=== PATIENT | female | born 1990 | race Caucasian/White ===

== ENCOUNTER 2017-01-21 08:20 | Emergency (ER) | payer OTHER ==
--- NOTE | 2017-01-21 09:28 | DIAGNOSTIC IMAGING REPORT ---
PROCEDURE: XR CHEST 1 VIEW INDICATION: R SIDE PX TECHNIQUE: Portable AP view 09:15 a.m. COMPARISON: None. FINDINGS: Lungs are clear. Heart and mediastinum are normal. Thorax is normal. IMPRESSION: 1. Negative chest.
--- NOTE | 2017-01-21 10:05 | ED ORDER SUMMARY ---
..... Patient: NAYANA CASTELLANOS OrderSheet [facility] VisitID: [id number] [address] [place] [address] 26y, F Registration Date/Time: 01/21/2017 ORDER SHEET Weight: 117.4 kg (stated) Allergies: Desmopressin GENERAL ORDERS: Chest 2V Urgent (08:58 01/21/2017 Seng EDOUARD) (Ack 9:05 Raphael) (9:14 Raphael) MEDICATION ORDERS: Depo-Medrol IM 80 mg (NOW) (10:05 01/21/2017 Francheska Espinal) (10:19 Mario Alberto Michaud.NEligio) IV FLUIDS: ORDER SHEET NOTES: [Electronically signed by Christiana Osuna R.N. (10:01/21/2017)] [Electronically signed by Gomez Michael Dr. (21:41 01/21/2017)] [Electronically locked/signed by Christiana Osuna R.N. (10:01/21/2017)]
--- NOTE | 2017-01-21 10:05 | ED CLINICAL REPORT ---
Clinical Report - Physicians/Mid Levels [facility] [address] [place] [address] 01/21/2017 8:23 Patient: NAYANA CASTELLANOS Time Seen: 08:49. Arrived- By private vehicle. Historian- patient. HISTORY OF PRESENT ILLNESS Chief Complaint: COUGH. This started about 3 weeks ago and is still present. It was gradual in onset and has been constant. The patient has had a cough, a subjective fever and chills. She has had moderate amounts of thick, white sputum. She has had chest soreness (R sided with deep breaths). Additional history - The patient has had contact with a sick child. Recent medical care: The patient was seen recently at another facility. Seen for similar symptoms. Evaluation/treatment: antibiotic prescribed. ( She reports that in spite of a course of Zithromax her symptoms did not improve.). REVIEW OF SYSTEMS No nausea, vomiting, pedal edema or calf pain. All systems otherwise negative, except as recorded above. PAST HISTORY Asthma. Hypertension. Bronchitis. SURGERIES: Appendectomy. Cholecystectomy. CSection. Tubal Ligation. SOCIAL HISTORY Current every day light tobacco smoker (cigarette)- less than 1/2 a pack per day. Occasional alcohol use. ADDITIONAL NOTES The nursing notes have been reviewed. PHYSICAL EXAM Vital Signs: 01/21/2017 08:35 BP: 132/77. HR: 73. RR: 18. O2 saturation: 99%. Temp: 98.7 F. Pain level now: 3/10. Have been reviewed. Appearance: Alert. No acute distress. Eyes: Pupils equal, round and reactive to light. ENT: Pharynx normal. Neck: Normal inspection. Neck supple. CVS: Normal heart rate and rhythm. Heart sounds normal. Respiratory: No respiratory distress. (rattle over large airways that cleared with cough). Abdomen: Soft and nontender. No organomegaly. Back: Normal inspection. Skin: Skin warm. Normal skin color. No rash. Normal skin turgor. Extremities: Extremities exhibit normal ROM. No calf tenderness. No lower extremity edema. Neuro: Oriented X 3. LABS, X-RAYS, AND EKG Chest X-ray: No acute disease. Normal lung markings present. Normal heart size. Mediastinum normal. Great vessels normal. Soft tissues normal. No infiltrate. No fracture. No bony lesion present. Views: PA and lateral. Technique: good. The X-rays were independently viewed by me and interpreted contemporaneously by me. Prior films were not available for comparison. Interpretation time: 10:02. PROGRESS AND PROCEDURES Course of Care: 09:16 01/21/17. The case was discussed with Dr. Alec harvey. We reviewed the patient's history and examination findings. He will follow up on the results are pending studies and will arrange an appropriate disposition for her. - MW 10:03 01/21/17. Confirmed H&P findings taken from Dr. Null from my own exam. Findings C/W post-viral cough. Disposition: Discharged home in good and improved condition. Condition: good. CLINICAL IMPRESSION Acute cough (Post-viral). INSTRUCTIONS Do not smoke. Seek medical help to quit smoking. Your Current Medications: CONTINUE TAKING THE FOLLOWING MEDICATIONS: CeleXA Oral : Tablet 20 mg, 1 tablet daily. Lisinopril Oral : Tablet 20 mg, 1 tablet daily. Prescription Medications: Benzonatate 100 mg: take 1 orally every 8 hours as needed for cough. Dispense twenty (20). No refill. Follow-up: Blood pressure screening was not performed during this visit because the patient has an active diagnosis of hypertension. Follow-up with: [facility], , , [address], , [place], [address] Follow up in two days. Call for an appointment. (Electronically signed by Gomez Michael Dr. 01/21/2017 21:41)
--- NOTE | 2017-01-21 10:05 | ED ORDER SUMMARY ---
..... Patient: NAYANA CASTELLANOS OrderSheet [facility] VisitID: [id number] [address] [place] [address] 26y, F Registration Date/Time: 01/21/2017 ORDER SHEET Weight: 117.4 kg (stated) Allergies: Desmopressin GENERAL ORDERS: Chest 2V Urgent (08:58 01/21/2017 Seng EDOUARD) (Ack 9:05 Raphael) (9:14 Raphael) MEDICATION ORDERS: Depo-Medrol IM 80 mg (NOW) (10:05 01/21/2017 Francheska Espinal) (10:19 Mario Alberto Michaud.NEligio) IV FLUIDS: ORDER SHEET NOTES: [Electronically signed by Christiana Osuna R.N. (10:01/21/2017)] [Electronically signed by Gomez Michael Dr. (21:41 01/21/2017)] [Electronically locked/signed by Christiana Osuna R.N. (10:01/21/2017)]
--- NOTE | 2017-01-21 10:05 | ED NURSING NOTES ---
Clinical Report - Nurses [facility] [address] [place] [address] 01/21/2017 8:23 Patient: NAYANA CASTELLANOS TRIAGE Triage time 08:35 Jan 21 2017. Acuity: LEVEL 3. Chief Complaint: (Right rib pain radiating to back). SEPSIS SCREEN: Sepsis Screen. Negative (no infection suspected/documented). TYRONE COMA SCORE: [place] Coma Scale: 15- eyes open spontaneously (4); best verbal response- oriented x 4 (5); best motor response- obeys commands (6). --08:43 Christiana Osuna R.N. 08:35 01/21/17. BP: 132/77 (large adult cuff) taken on the left arm, while sitting. HR: 73. RR: 18. O2 saturation: 99% on room air. Temp: 98.7 F (oral). Pain level now: 3/10. Additional comments: right rib. --08:43 Christiana Osuna R.N. Weight: 117.4 kg stated. Height/Length: 62 inches Per Patient. BMI: 47.4. --08:39 Christiana Osuna R.N. Medications Lisinopril Oral (Tablet 20 mg) 1 tablet, daily. --08:37 Christiana Osuna R.N. CeleXA Oral (Tablet 20 mg) 1 tablet, daily. --08:38 Christiana Osuna R.N. Allergies Desmopressin. --08:38 Christiana Osuna R.N. History Arrived by private vehicle. Historian: patient. Onset. (2 days ago). ( cough for 3 weeks, zpac given for 5 days one week ago, hasn't noticed any improvement). 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 PAST MEDICAL HX: Last normal menstrual period now. SOCIAL HX: Current every day light tobacco smoker- less than 1/2 a pack per day. Occasional alcohol use; consumes liquor. No drug use. No recent travel. She has had contact with a sick child. No infectious disease exposure. ABUSE ASSESSMENT: No report of abuse. --08:43 Christiana Osuna R.N. PROBLEMS: Asthma. Hypertension. Bronchitis. --08:40 Christiana Osuna R.N. ADDITIONAL SURGERIES: Appendectomy. Cholecystectomy. CSection. Tubal Ligation. --08:40 Christiana Osuna R.N. Interventions ID band on patient. To treatment room. --08:43 Christiana Osuna R.N. PHYSICAL ASSESSMENT Ambulatory to room. GENERAL / NEURO / PSYCH: Alert. Oriented X 4. HEENT: Mucous membranes are pink. RESPIRATORY: Respirations not labored. Breath sounds within normal limits. CVS: Normal sinus rhythm noted. Capillary refill less than 2 seconds. GI / : The patient has diarrhea (last three days). It has been watery and contained mucous. Abdomen soft. Abdominal tenderness in the right upper quadrant and left upper quadrant. SKIN: Skin is warm. --08:45 Christiana Osuna R.N. NURSING PROGRESS NOTES The plan of care for this patient has been created. Monitoring of patient in place. Patient gowned. Head of bed elevated. Reassurance given. Two patient identifiers checked. Call light placed in reach. Side rails up x 1. Bed placed in lowest position. Brakes of bed on. Patient ready for evaluation- chart flagged and ED physician notified. --08:45 Christiana Osuna R.N. Patient returned from radiology with tech. (09:20 Jan 21 2017). --09:20 Christiana Osuna R.N. <<STRICKEN ENTRY-- Care transferred and report given (Olinda PARDO). --10:00 Christiana Osuna R.N. --END STRIKE>> Charted On Wrong Patient --10:26 Christiana Osuna R.N. 10:19 01/21/2017 Depo-Medrol IM 80 mg given. Given in the left gluteus sharron. Allergies verified and confirmed 5 rights. --10:19 Christiana Osuna R.N. 10:00 01/21/17. BP: 120/80 (large adult cuff) taken on the left arm, while sitting. HR: 70. RR: 18. O2 saturation: 98% on room air. Pain level now: 4/10. --10:25 Christiana Osuna R.N. DISPOSITION / DISCHARGE Condition at departure: unchanged. No learning barriers present. Discharge instructions provided and reviewed with the patient. Reviewed medication(s) side effects, precautions and dosing information. Prescription(s) given to the patient. Reviewed need to stop smoking- provided smoking cessation materials and counseling. Patient verbalized understanding. Written instructions provided in Portuguese. The patient was discharged by the physician. She was discharged home. She left the Emergency Department ambulatory and via private vehicle. Patient driving. --10:19 Christiana Osuna R.N. 10:13 01/21/17. BP: 120/80 (regular adult cuff) taken on the left arm, while sitting. HR: 75. RR: 18. O2 saturation: 97% on room air. Temp: 98.4 F (oral). Pain level now: 01/18. --10:19 Christiana Osuna R.N. Departure time: 10:23 Jan 21 2017. --10:23 Christiana Osuna R.N. Locked/Released at 01/21/2017 10:26 by Christiana Osuna R.N.
--- NOTE | 2017-01-21 10:05 | ED NURSING NOTES ---
Clinical Report - Nurses [facility] [address] [place] [address] 01/21/2017 8:23 Patient: NAYANA CASTELLANOS TRIAGE Triage time 08:35 Jan 21 2017. Acuity: LEVEL 3. Chief Complaint: (Right rib pain radiating to back). SEPSIS SCREEN: Sepsis Screen. Negative (no infection suspected/documented). TYRONE COMA SCORE: [place] Coma Scale: 15- eyes open spontaneously (4); best verbal response- oriented x 4 (5); best motor response- obeys commands (6). --08:43 Christiana Osuna R.N. 08:35 01/21/17. BP: 132/77 (large adult cuff) taken on the left arm, while sitting. HR: 73. RR: 18. O2 saturation: 99% on room air. Temp: 98.7 F (oral). Pain level now: 3/10. Additional comments: right rib. --08:43 Christiana Osuna R.N. Weight: 117.4 kg stated. Height/Length: 62 inches Per Patient. BMI: 47.4. --08:39 Christiana Osuna R.N. Medications Lisinopril Oral (Tablet 20 mg) 1 tablet, daily. --08:37 Christiana Osuna R.N. CeleXA Oral (Tablet 20 mg) 1 tablet, daily. --08:38 Christiana Osuna R.N. Allergies Desmopressin. --08:38 Christiana Osuna R.N. History Arrived by private vehicle. Historian: patient. Onset. (2 days ago). ( cough for 3 weeks, zpac given for 5 days one week ago, hasn't noticed any improvement). 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 PAST MEDICAL HX: Last normal menstrual period now. SOCIAL HX: Current every day light tobacco smoker- less than 1/2 a pack per day. Occasional alcohol use; consumes liquor. No drug use. No recent travel. She has had contact with a sick child. No infectious disease exposure. ABUSE ASSESSMENT: No report of abuse. --08:43 Christiana Osuna R.N. PROBLEMS: Asthma. Hypertension. Bronchitis. --08:40 Christiana Osuna R.N. ADDITIONAL SURGERIES: Appendectomy. Cholecystectomy. CSection. Tubal Ligation. --08:40 Christiana Osuna R.N. Interventions ID band on patient. To treatment room. --08:43 Christiana Osuna R.N. PHYSICAL ASSESSMENT Ambulatory to room. GENERAL / NEURO / PSYCH: Alert. Oriented X 4. HEENT: Mucous membranes are pink. RESPIRATORY: Respirations not labored. Breath sounds within normal limits. CVS: Normal sinus rhythm noted. Capillary refill less than 2 seconds. GI / : The patient has diarrhea (last three days). It has been watery and contained mucous. Abdomen soft. Abdominal tenderness in the right upper quadrant and left upper quadrant. SKIN: Skin is warm. --08:45 Christiana Osuna R.N. NURSING PROGRESS NOTES The plan of care for this patient has been created. Monitoring of patient in place. Patient gowned. Head of bed elevated. Reassurance given. Two patient identifiers checked. Call light placed in reach. Side rails up x 1. Bed placed in lowest position. Brakes of bed on. Patient ready for evaluation- chart flagged and ED physician notified. --08:45 Christiana Osuna R.N. Patient returned from radiology with tech. (09:20 Jan 21 2017). --09:20 Christiana Osuna R.N. <<STRICKEN ENTRY-- Care transferred and report given (Olinda PARDO). --10:00 Christiana Osuna R.N. --END STRIKE>> Charted On Wrong Patient --10:26 Christiana Osuna R.N. 10:19 01/21/2017 Depo-Medrol IM 80 mg given. Given in the left gluteus sharron. Allergies verified and confirmed 5 rights. --10:19 Christiana Osuna R.N. 10:00 01/21/17. BP: 120/80 (large adult cuff) taken on the left arm, while sitting. HR: 70. RR: 18. O2 saturation: 98% on room air. Pain level now: 4/10. --10:25 Christiana Osuna R.N. DISPOSITION / DISCHARGE Condition at departure: unchanged. No learning barriers present. Discharge instructions provided and reviewed with the patient. Reviewed medication(s) side effects, precautions and dosing information. Prescription(s) given to the patient. Reviewed need to stop smoking- provided smoking cessation materials and counseling. Patient verbalized understanding. Written instructions provided in Frisian. The patient was discharged by the physician. She was discharged home. She left the Emergency Department ambulatory and via private vehicle. Patient driving. --10:19 Christiana Osuna R.N. 10:13 01/21/17. BP: 120/80 (regular adult cuff) taken on the left arm, while sitting. HR: 75. RR: 18. O2 saturation: 97% on room air. Temp: 98.4 F (oral). Pain level now: 01/18. --10:19 Christiana Osuna R.N. Departure time: 10:23 Jan 21 2017. --10:23 Christiana Osuna R.N. Locked/Released at 01/21/2017 10:26 by Christiana Osuna R.N.
--- NOTE | 2017-01-21 10:05 | ED CLINICAL REPORT ---
Clinical Report - Physicians/Mid Levels [facility] [address] [place] [address] 01/21/2017 8:23 Patient: NAYANA CASTELLANOS Time Seen: 08:49. Arrived- By private vehicle. Historian- patient. HISTORY OF PRESENT ILLNESS Chief Complaint: COUGH. This started about 3 weeks ago and is still present. It was gradual in onset and has been constant. The patient has had a cough, a subjective fever and chills. She has had moderate amounts of thick, white sputum. She has had chest soreness (R sided with deep breaths). Additional history - The patient has had contact with a sick child. Recent medical care: The patient was seen recently at another facility. Seen for similar symptoms. Evaluation/treatment: antibiotic prescribed. ( She reports that in spite of a course of Zithromax her symptoms did not improve.). REVIEW OF SYSTEMS No nausea, vomiting, pedal edema or calf pain. All systems otherwise negative, except as recorded above. PAST HISTORY Asthma. Hypertension. Bronchitis. SURGERIES: Appendectomy. Cholecystectomy. CSection. Tubal Ligation. SOCIAL HISTORY Current every day light tobacco smoker (cigarette)- less than 1/2 a pack per day. Occasional alcohol use. ADDITIONAL NOTES The nursing notes have been reviewed. PHYSICAL EXAM Vital Signs: 01/21/2017 08:35 BP: 132/77. HR: 73. RR: 18. O2 saturation: 99%. Temp: 98.7 F. Pain level now: 3/10. Have been reviewed. Appearance: Alert. No acute distress. Eyes: Pupils equal, round and reactive to light. ENT: Pharynx normal. Neck: Normal inspection. Neck supple. CVS: Normal heart rate and rhythm. Heart sounds normal. Respiratory: No respiratory distress. (rattle over large airways that cleared with cough). Abdomen: Soft and nontender. No organomegaly. Back: Normal inspection. Skin: Skin warm. Normal skin color. No rash. Normal skin turgor. Extremities: Extremities exhibit normal ROM. No calf tenderness. No lower extremity edema. Neuro: Oriented X 3. LABS, X-RAYS, AND EKG Chest X-ray: No acute disease. Normal lung markings present. Normal heart size. Mediastinum normal. Great vessels normal. Soft tissues normal. No infiltrate. No fracture. No bony lesion present. Views: PA and lateral. Technique: good. The X-rays were independently viewed by me and interpreted contemporaneously by me. Prior films were not available for comparison. Interpretation time: 10:02. PROGRESS AND PROCEDURES Course of Care: 09:16 01/21/17. The case was discussed with Dr. Alec harvey. We reviewed the patient's history and examination findings. He will follow up on the results are pending studies and will arrange an appropriate disposition for her. - MW 10:03 01/21/17. Confirmed H&P findings taken from Dr. Null from my own exam. Findings C/W post-viral cough. Disposition: Discharged home in good and improved condition. Condition: good. CLINICAL IMPRESSION Acute cough (Post-viral). INSTRUCTIONS Do not smoke. Seek medical help to quit smoking. Your Current Medications: CONTINUE TAKING THE FOLLOWING MEDICATIONS: CeleXA Oral : Tablet 20 mg, 1 tablet daily. Lisinopril Oral : Tablet 20 mg, 1 tablet daily. Prescription Medications: Benzonatate 100 mg: take 1 orally every 8 hours as needed for cough. Dispense twenty (20). No refill. Follow-up: Blood pressure screening was not performed during this visit because the patient has an active diagnosis of hypertension. Follow-up with: [facility], , , [address], , [place], [address] Follow up in two days. Call for an appointment. (Electronically signed by Gomez Michael Dr. 01/21/2017 21:41)
--- NOTE | 2017-01-21 10:49 | DIAGNOSTIC IMAGING REPORT ---
PROCEDURE: XR CHEST 1 VIEW INDICATION: PAIN TECHNIQUE: Lateral view 09:42 a.m. COMPARISON: PA view 01/21/2017 at 09:15 a.m. FINDINGS: Lungs are clear. Heart and mediastinum are normal. Thorax is normal. IMPRESSION: 1. Negative chest.
--- NOTE | 2017-01-21 21:41 | ED DISCHARGE INSTRUCTIONS ---
Patient: NAYANA CASTELLANOS General Instructions [facility] VisitID: [id number] [address] [place] [address] 26y, F Registration Date/Time: 01/21/2017 Acute cough (Post-viral). INSTRUCTIONS Do not smoke. Seek medical help to quit smoking. Your Current Medications: CONTINUE TAKING THE FOLLOWING MEDICATIONS: CeleXA Oral : Tablet 20 mg, 1 tablet daily. Lisinopril Oral : Tablet 20 mg, 1 tablet daily. Prescription Medications: Benzonatate 100 mg: take 1 orally every 8 hours as needed for cough. Dispense twenty (20). No refill. Follow-up: Blood pressure screening was not performed during this visit because the patient has an active diagnosis of hypertension. Follow-up with: [facility], , , [address], , [place], [id number] Follow up in two days. Call for an appointment. ADDITIONAL INFORMATION Viral Respiratory Illness [Adult] You have an Upper Respiratory Illness (URI) caused by a virus. This illness is contagious during the first few days. It is spread through the air by coughing and sneezing or by direct contact (touching the sick person and then touching your own eyes, nose or mouth). Most viral illnesses go away within 7-10 days with rest and simple home remedies. Sometimes, the illness may last for several weeks. Antibiotics will not kill a virus and are generally not prescribed for this condition. Home Care: 1) If symptoms are severe, rest at home for the first 2-3 days. When you resume activity, don't let yourself get too tired. 2) Avoid being exposed to cigarette smoke (yours or others). 3) Tylenol (acetaminophen) or ibuprofen (Advil, Motrin) will help fever, muscle aching and headache. (Persons under 18 with fever should not take aspirin since this may cause liver damage.) 4) Your appetite may be poor, so a light diet is fine. Avoid dehydration by drinking 6-8 glasses of fluids per day (water, soft drinks, juices, tea, soup). Extra fluids will help loosen secretions in the nose and lungs. 5) Vtwl-mzm-fpztczd cold medicines will not shorten the length of time youre sick, but they may be helpful for the following symptoms: cough (Robitussin DM); sore throat (Chloraseptic lozenges or spray); nasal and sinus congestion (Actifed, Sudafed, Chlortrimeton). Follow Up with your doctor or as advised if you dont improve over the next week. Get Prompt Medical Attention if any of the following occur: -- Cough with lots of colored sputum (mucus) or blood in your sputum -- Chest pain, shortness of breath, wheezing or have trouble breathing -- Severe headache; face, neck or ear pain -- Fever over 100.4 F (38.0 C) for more than three days -- You cant swallow due to throat pain How To Quit Smoking Smoking is one of the hardest habits to break. About half of all those who have ever smoked have been able to quit, and most of those (about 70%) who still smoke want to quit. Here are some of the best ways to stop smoking. Keep Trying: It takes most smokers about 8 tries before they are finally able to fully quit. So, the more often you try and fail, the better your chance of quitting the next time! So, don't give up! Go Cold [place]: Most ex-smokers quit cold turkey. Trying to cut back gradually doesn't seem to work as well, perhaps because it continues the smoking habit. Also, it is possible to fool yourself by inhaling more while smoking fewer cigarettes. This results in the same amount of nicotine in your body! Get Support: Support programs can make an important difference, especially for the heavy smoker. These groups offer lectures, methods to change your behavior and peer support. Call the free national Quitline for more information. 341-RUDL-LIJ (712-789-4772). Low-cost or free programs are offered by many hospitals, local chapters of the [place] [employer] (360-029-5330) and the [place] [employer] (555-763-4792). Support at home is important too. Non-smokers can help by offering praise and encouragement. If the smoker fails to quit, encourage them to try again! Eeey-Byl-Efevlgr Medicines: For those who can't quit on their own, Nicotine Replacement Therapy (NRT) may make quitting much easier. Certain aids such as the nicotine patch, gum and lozenge are available without a prescription. However, it is best to use these under the guidance of your doctor. The skin patch provides a steady supply of nicotine to the body. Nicotine gum and lozenge gives temporary bursts of low levels of nicotine. Both methods take the edge off the craving for cigarettes. WARNING: If you feel symptoms of nicotine overdose, such as nausea, vomiting, dizziness, weakness, or fast heartbeat, stop using these and see your doctor. Prescription Medicines: After evaluating your smoking patterns and prior attempts at quitting, your doctor may offer a prescription medicine such as bupropion (Zyban, Wellbutrin), varenicline (Chantix, Champix), a niocotine inhaler or nasal spray. Each has its unique advantage and side effects which your doctor can review with you. Health Benefits Of Quitting: The benefits of quitting start right away and keep improving the longer you go without smokin minutes: blood pressure and pulse return to normal 8 hours: oxygen levels return to normal 2 days: ability to smell and taste begins to improve as damaged nerves start to regrow 2-3 weeks: circulation and lung function improves 1-9 months: decreased cough, congestion and shortness of breath; less tired 1 year: risk of heart attack decreases by half 5 years: risk of lung cancer decreases by half; risk of stroke becomes the same as a non-smoker For information about how to quit smoking, visit the following links: National Cancer [place] , Clearing the Air, Quit Smoking Today - an online booklet. http://www.smokefree.gov/pubs/clearing_the_air.pdf Smokefree.gov http://smokefree.gov/ QuitNet http://www.quitnet.com/ Benzonatate Oral capsule, liquid filled What is this medicine? BENZONATATE (steph ROSETTA na caban) is used to treat cough. How should I use this medicine? Take this medicine by mouth with a glass of water. Follow the directions on the prescription label. Avoid breaking, chewing, or sucking the capsule, as this can cause serious side effects. Take your medicine at regular intervals. Do not take your medicine more often than directed. Talk to your instructor tap dancing regarding the use of this medicine in children. While this drug may be prescribed for children as young as 10 years old for selected conditions, precautions do apply. What side effects may I notice from receiving this medicine? Side effects that you should report to your doctor or health child day care provider as soon as possible: allergic reactions like skin rash, itching or hives, swelling of the face, lips, or tongue breathing problems chest pain confusion or hallucinations irregular heartbeat numbness of mouth or throat seizures Side effects that usually do not require medical attention (report to your doctor or health child day care provider if they continue or are bothersome): burning feeling in the eyes constipation headache nasal congestion stomach upset What may interact with this medicine? Do not take this medicine with any of the following medications: MAOIs like Carbex, Eldepryl, Marplan, Nardil, and Parnate What if I miss a dose? If you miss a dose, take it as soon as you can. If it is almost time for your next dose, take only that dose. Do not take double or extra doses. Where should I keep my medicine? Keep out of the reach of children. Store at room temperature between 15 and 30 degrees C (59 and 86 degrees F). Keep tightly closed. Protect from light and moisture. Throw away any unused medicine after the expiration date. What should I tell my health care provider before I take this medicine? They need to know if you have any of these conditions: kidney or liver disease an unusual or allergic reaction to benzonatate, anesthetics, other medicines, foods, dyes, or preservatives or trying to get breast-feeding What should I watch for while using this medicine? Tell your doctor if your symptoms do not improve or if they get worse. If you have a high fever, skin rash, or headache, see your health child day care provider. You may get drowsy or dizzy. Do not drive, use machinery, or do anything that needs mental alertness until you know how this medicine affects you. Do not sit or stand up quickly, especially if you are an older patient. This reduces the risk of dizzy or fainting spells. You have been given the following additional information: Uri, Viral, No Abx (Adult) Smoking Cessation Benzonatate Oral capsule, liquid filled (Electronically signed by Gomez Michael Dr. 01/21/2017 21:41)
--- NOTE | 2017-01-21 21:41 | ED DISCHARGE INSTRUCTIONS ---
Patient: NAYANA CASTELLANOS General Instructions [facility] VisitID: [id number] [address] [place] [address] 26y, F Registration Date/Time: 01/21/2017 Acute cough (Post-viral). INSTRUCTIONS Do not smoke. Seek medical help to quit smoking. Your Current Medications: CONTINUE TAKING THE FOLLOWING MEDICATIONS: CeleXA Oral : Tablet 20 mg, 1 tablet daily. Lisinopril Oral : Tablet 20 mg, 1 tablet daily. Prescription Medications: Benzonatate 100 mg: take 1 orally every 8 hours as needed for cough. Dispense twenty (20). No refill. Follow-up: Blood pressure screening was not performed during this visit because the patient has an active diagnosis of hypertension. Follow-up with: [facility], , , [address], , [place], [id number] Follow up in two days. Call for an appointment. ADDITIONAL INFORMATION Viral Respiratory Illness [Adult] You have an Upper Respiratory Illness (URI) caused by a virus. This illness is contagious during the first few days. It is spread through the air by coughing and sneezing or by direct contact (touching the sick person and then touching your own eyes, nose or mouth). Most viral illnesses go away within 7-10 days with rest and simple home remedies. Sometimes, the illness may last for several weeks. Antibiotics will not kill a virus and are generally not prescribed for this condition. Home Care: 1) If symptoms are severe, rest at home for the first 2-3 days. When you resume activity, don't let yourself get too tired. 2) Avoid being exposed to cigarette smoke (yours or others). 3) Tylenol (acetaminophen) or ibuprofen (Advil, Motrin) will help fever, muscle aching and headache. (Persons under 18 with fever should not take aspirin since this may cause liver damage.) 4) Your appetite may be poor, so a light diet is fine. Avoid dehydration by drinking 6-8 glasses of fluids per day (water, soft drinks, juices, tea, soup). Extra fluids will help loosen secretions in the nose and lungs. 5) Onok-kxt-ffigbsb cold medicines will not shorten the length of time youre sick, but they may be helpful for the following symptoms: cough (Robitussin DM); sore throat (Chloraseptic lozenges or spray); nasal and sinus congestion (Actifed, Sudafed, Chlortrimeton). Follow Up with your doctor or as advised if you dont improve over the next week. Get Prompt Medical Attention if any of the following occur: -- Cough with lots of colored sputum (mucus) or blood in your sputum -- Chest pain, shortness of breath, wheezing or have trouble breathing -- Severe headache; face, neck or ear pain -- Fever over 100.4 F (38.0 C) for more than three days -- You cant swallow due to throat pain How To Quit Smoking Smoking is one of the hardest habits to break. About half of all those who have ever smoked have been able to quit, and most of those (about 70%) who still smoke want to quit. Here are some of the best ways to stop smoking. Keep Trying: It takes most smokers about 8 tries before they are finally able to fully quit. So, the more often you try and fail, the better your chance of quitting the next time! So, don't give up! Go Cold [place]: Most ex-smokers quit cold turkey. Trying to cut back gradually doesn't seem to work as well, perhaps because it continues the smoking habit. Also, it is possible to fool yourself by inhaling more while smoking fewer cigarettes. This results in the same amount of nicotine in your body! Get Support: Support programs can make an important difference, especially for the heavy smoker. These groups offer lectures, methods to change your behavior and peer support. Call the free national Quitline for more information. 296-CLWL-AHE (900-453-4146). Low-cost or free programs are offered by many hospitals, local chapters of the [place] [employer] (902-282-6439) and the [place] [employer] (273-130-2019). Support at home is important too. Non-smokers can help by offering praise and encouragement. If the smoker fails to quit, encourage them to try again! Lgxt-Xvu-Uwhuakd Medicines: For those who can't quit on their own, Nicotine Replacement Therapy (NRT) may make quitting much easier. Certain aids such as the nicotine patch, gum and lozenge are available without a prescription. However, it is best to use these under the guidance of your doctor. The skin patch provides a steady supply of nicotine to the body. Nicotine gum and lozenge gives temporary bursts of low levels of nicotine. Both methods take the edge off the craving for cigarettes. WARNING: If you feel symptoms of nicotine overdose, such as nausea, vomiting, dizziness, weakness, or fast heartbeat, stop using these and see your doctor. Prescription Medicines: After evaluating your smoking patterns and prior attempts at quitting, your doctor may offer a prescription medicine such as bupropion (Zyban, Wellbutrin), varenicline (Chantix, Champix), a niocotine inhaler or nasal spray. Each has its unique advantage and side effects which your doctor can review with you. Health Benefits Of Quitting: The benefits of quitting start right away and keep improving the longer you go without smokin minutes: blood pressure and pulse return to normal 8 hours: oxygen levels return to normal 2 days: ability to smell and taste begins to improve as damaged nerves start to regrow 2-3 weeks: circulation and lung function improves 1-9 months: decreased cough, congestion and shortness of breath; less tired 1 year: risk of heart attack decreases by half 5 years: risk of lung cancer decreases by half; risk of stroke becomes the same as a non-smoker For information about how to quit smoking, visit the following links: National Cancer [place] , Clearing the Air, Quit Smoking Today - an online booklet. http://www.smokefree.gov/pubs/clearing_the_air.pdf Smokefree.gov http://smokefree.gov/ QuitNet http://www.quitnet.com/ Benzonatate Oral capsule, liquid filled What is this medicine? BENZONATATE (steph ROSETTA na caban) is used to treat cough. How should I use this medicine? Take this medicine by mouth with a glass of water. Follow the directions on the prescription label. Avoid breaking, chewing, or sucking the capsule, as this can cause serious side effects. Take your medicine at regular intervals. Do not take your medicine more often than directed. Talk to your lot technician regarding the use of this medicine in children. While this drug may be prescribed for children as young as 10 years old for selected conditions, precautions do apply. What side effects may I notice from receiving this medicine? Side effects that you should report to your doctor or health rn primary care as soon as possible: allergic reactions like skin rash, itching or hives, swelling of the face, lips, or tongue breathing problems chest pain confusion or hallucinations irregular heartbeat numbness of mouth or throat seizures Side effects that usually do not require medical attention (report to your doctor or health rn primary care if they continue or are bothersome): burning feeling in the eyes constipation headache nasal congestion stomach upset What may interact with this medicine? Do not take this medicine with any of the following medications: MAOIs like Carbex, Eldepryl, Marplan, Nardil, and Parnate What if I miss a dose? If you miss a dose, take it as soon as you can. If it is almost time for your next dose, take only that dose. Do not take double or extra doses. Where should I keep my medicine? Keep out of the reach of children. Store at room temperature between 15 and 30 degrees C (59 and 86 degrees F). Keep tightly closed. Protect from light and moisture. Throw away any unused medicine after the expiration date. What should I tell my health care provider before I take this medicine? They need to know if you have any of these conditions: kidney or liver disease an unusual or allergic reaction to benzonatate, anesthetics, other medicines, foods, dyes, or preservatives or trying to get breast-feeding What should I watch for while using this medicine? Tell your doctor if your symptoms do not improve or if they get worse. If you have a high fever, skin rash, or headache, see your health rn primary care. You may get drowsy or dizzy. Do not drive, use machinery, or do anything that needs mental alertness until you know how this medicine affects you. Do not sit or stand up quickly, especially if you are an older patient. This reduces the risk of dizzy or fainting spells. You have been given the following additional information: Uri, Viral, No Abx (Adult) Smoking Cessation Benzonatate Oral capsule, liquid filled (Electronically signed by Gomez Michael Dr. 01/21/2017 21:41)
--- NOTE | 2017-01-21 21:42 | ED MAR SUMMARY ---
..... Medication Administration Record [facility] [address] [place] [address] Patient: NAYANA CASTELLANOS Visit ID: [id number] 26y, F Weight: 117.4 kg Height/Length: 62 in BMI: 47.4 ALLERGIES: Desmopressin Given 10:19 01/21/2017 Christiana Ousna RMay Medication Administered: DEPO-MEDROL [IM], Dose: 80 mg IM. Medication Ordered: Depo-Medrol IM 80 mg (NOW).
--- NOTE | 2017-01-21 21:42 | ED MED RECONCILIATION SUMMARY ---
Patient: NAYANA CASTELLANOS Medication Reconciliation Report [facility] VisitID: [id number] [address] [place] [address] 26y, F Registration Date/Time: 01/21/2017 Weight: 117.4 kg Height/Length: 62 in. BMI: 47.4 ALLERGIES: Desmopressin The patient's Home Medications are listed below: CONTINUE TAKING THE FOLLOWING MEDICATIONS: CeleXA Oral (20 mg) 1 tablet, daily Lisinopril Oral (20 mg) 1 tablet, daily The source(s) of the original Home Medication information: Not obtained. The following Medications were given to the patient in the Emergency Department: Depo-Medrol [IM] IM 80 mg, administered: 01/21/2017 10:19:00 AM The following Medications were prescribed to the patient: Benzonatate 100 mg: take 1 orally every 8 hours as needed for cough. Dispense twenty (20). No refill. -- Gomez Michael Dr.
--- NOTE | 2017-01-21 21:42 | ED MED RECONCILIATION SUMMARY ---
Patient: NAYANA CASTELLANOS Medication Reconciliation Report [facility] VisitID: [id number] [address] [place] [address] 26y, F Registration Date/Time: 01/21/2017 Weight: 117.4 kg Height/Length: 62 in. BMI: 47.4 ALLERGIES: Desmopressin The patient's Home Medications are listed below: CONTINUE TAKING THE FOLLOWING MEDICATIONS: CeleXA Oral (20 mg) 1 tablet, daily Lisinopril Oral (20 mg) 1 tablet, daily The source(s) of the original Home Medication information: Not obtained. The following Medications were given to the patient in the Emergency Department: Depo-Medrol [IM] IM 80 mg, administered: 01/21/2017 10:19:00 AM The following Medications were prescribed to the patient: Benzonatate 100 mg: take 1 orally every 8 hours as needed for cough. Dispense twenty (20). No refill. -- Gomez Michael Dr.
--- NOTE | 2017-01-21 21:42 | ED MAR SUMMARY ---
..... Medication Administration Record [facility] [address] [place] [address] Patient: NAYANA CASTELLANOS Visit ID: [id number] 26y, F Weight: 117.4 kg Height/Length: 62 in BMI: 47.4 ALLERGIES: Desmopressin Given 10:19 01/21/2017 Christiana Osuna RMay Medication Administered: DEPO-MEDROL [IM], Dose: 80 mg IM. Medication Ordered: Depo-Medrol IM 80 mg (NOW).
== END 2017-01-21 10:23 | disposition home or self-care (01) ==
LOC: ED SRH 08:20
DX: R05 Cough (principal); Z72.0 Tobacco use